=== PATIENT | male | born 1985 | race Caucasian/White ===

== ENCOUNTER 2021-06-22 22:21 | Emergency (ER) | payer OTHER ==
[2021-06-22 22:27] VITALS: BP 130/78; PULSE 92; TEMP 98.6; BMI 50.8
== END 2021-06-23 01:31 | disposition home or self-care (01) ==
LOC: JER 22:21
DX: Z11.52 Encounter for screening for COVID-19 (principal)
CPT/HCPCS: 99283-25; C9803; U0003; U0005